=== PATIENT | male | born 1945 | race Caucasian/White ===

== ENCOUNTER 2022-01-11 02:30 | Emergency (ER) | payer MEDICARE, BC ==
[2022-01-11] VITALS (33 sets, daily range): BP systolic 180; BP diastolic 99; PULSE 94; TEMP 98.5; O2SAT 91–97
[~2022-01-11] VITALS: Ht 177 cm; Wt 77.3 kg
== END 2022-01-11 07:19 | disposition home or self-care (01) ==
LOC: COL.ER 02:30
DX: S70.01XA Contusion of right hip, initial encounter (principal); W18.30XA Fall on same level, unspecified, initial encounter